=== PATIENT | male | born 1955 | race Hispanic/Latino ===

== ENCOUNTER → 2022-02-10 | Outpatient (CLI) | payer OTHER | END | disposition home or self-care (01) | LOC: RAH 14:08 | PROVIDERS: ATTEND Family Medicine | DX: M47.812 Spondylosis without myelopathy or radiculopathy, cervical region (principal); I65.23 Occlusion and stenosis of bilateral carotid arteries; M47.816 Spondylosis without myelopathy or radiculopathy, lumbar region; M47.817 Spondylosis without myelopathy or radiculopathy, lumbosacral region; Z02.71 Encounter for disability determination | CPT/HCPCS: 72040; 72100; 73030 ==